=== PATIENT | female | born 1980 | race Caucasian/White ===

== ENCOUNTER → 2022-11-06 15:27 | Outpatient (BNVA) | payer BC, SELFPAY | PROVIDERS: PCP Internal Medicine; Visit Provider Psychiatry & Neurology Neurology ==

== ENCOUNTER 2024-03-16 09:06 | Outpatient (AMB) | payer BC, SELFPAY ==
--- NOTE | 2024-03-16 09:12 | A.OFFVIS_ITS ---
Vital Signs 03/16/24 09:13 Height 5 ft 1 in Weight 199 lb BMI 37.6 BP 106/74 Blood Pressure Location Rt brachial Position Sitting Intake Visit Reasons: Follow up Epilepsy Intake Note: Patient presents for follow up epilepsy. 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 She has been doing well on her medication, seizure free since 2007. She requests therapeutic Level for medication once a year, (Keppra) last one was in November 2022. She is well aware of her triggers that lower her threshold for seizures. She usually takes her medication on time and, doesn't drink alcohol, practices good sleep hygiene. She Limits stressors. She is a bit more stressed with the election, and sick family member. Taking her Buspirone and Citalopram as directed by her PCP. She is s/p Bariatric surgery 3 years ago and, concerned about her weight, as she is stress eating fast food. 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 Emphasized to her the use of vitamin D as we are approaching winter, and her mood is affected by daylight savings, not getting enough Sun. [facility]LY [facility] Medical History Juvenile myoclonic epilepsy Depression Anxiety Surgical History H/O tooth extraction H/O dilation and curettage History of laparoscopic cholecystectomy H/O gastric sleeve Family History Mother Arthritis Asthma Fibromyalgia Chronic GERD Hypertension Migraines Father Alcohol abuse Maternal Grandfather Cancer Hypertension Maternal Grandmother CAD (coronary artery disease) Hypertension Diabetes Paternal Grandfather Hypertension Paternal Grandmother Hypertension Social History Alcohol intake: former Patient Tobacco Use Status: Former Tobacco user Years Smoked: quit today 11/06/2022 Review of Systems Const All systems reviewed & are unremarkable except as noted in HPI and below Psych Reports as per HPI Physical Exam Vital Signs: Last Vital Signs BP 106/74 03/16/24 09:13 BMI result Body Mass Index 37.6 Const General: cooperative, comfortable and no acute distress Nutritional Appearance: obese Orientation/consciousness: patient oriented x3 HEENT Face and sinus: Yes face symmetric Mouth: tongue normal Eyes Pupils: Equal, round and reactive pupils present, Pupils normal by confrontation and Pupil accommodation reflex normal Neck Neck: Yes full ROM Resp Effort & Inspection: normal respiratory effort and able to speak in complete sentences Neuro General: patient oriented x3, tone normal, moves all extremities, Normal light touch and pain sensation and deep tendon reflexes 2+ bilaterally Cranial nerves: Yes CN's II-XII intact bilaterally, Yes Facial sensation intact/muscles of mastication intact, Yes Equal, round and reactive pupils present, Yes Normal facial strength present, Yes Midline tongue present, Yes Ability to bilaterally rotate head present and Yes Ability to bilaterally elevate shoulders present Gait exam (Neuro): Normal gait present Motor exam (neuro): 5/5 motor strength present throughout and Normal motor muscle tone present throughout Deep tendon reflexes (DTR's): Right triceps reflex intensity grade: 2+, Left triceps reflex intensity grade: 2+, Rt Biceps (C5, C6): 2+, Left biceps reflex intensity grade: 2+, Right brachioradialis reflex intensity grade: 2+, Left brachioradialis reflex intensity grade: 2+, Right patellar reflex intensity grade: 2+, Left patellar reflex intensity grade: 2+, Right ankle reflex intensity grade: 2+ and Left ankle reflex intensity grade: 2+ Coordination: [id number] test normal Assessment & Plan Assessment & Plan (1) Juvenile myoclonic epilepsy: Code(s): G40.B09 - Juvenile myoclonic epilepsy, not intractable, without status epilepticus Category: Medical Qualifiers: Intractability: intractable Status epilepticus: without status epilepticus Qualified Code(s): G40.B19 - Juvenile myoclonic epilepsy, intractable, without status epilepticus Plan: Continue to take Levetiracetam as directed 1000mg PO BID - Refills are sent today. Continue eliminating stress. Continue with good sleep hygiene. Will follow up with Labs CBC, CMP, Electrolytes. (2) Anxiety: Code(s): F41.9 - Anxiety disorder, unspecified Category: Medical Plan: Continue taking Buspirone as directed by therapist. 15mg PO TID, as you are doing. Continue taking Citalopram 40mg PO Daily. Continue taking vitamin d as we approach the winter months, sunshine tends to be limited. Continue going on walks daily, and low intensity exercises. Orders: Orders Comprehensive Met. 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
[2024-03-16 09:13] VITALS: BP 106/74; BMI 37.6
== END 2024-03-16 09:57 | disposition home or self-care (01) ==
PROVIDERS: PCP Internal Medicine; Visit Provider Physician Assistant Medical
DX: G40.B19 Juvenile myoclonic epilepsy, intractable, without status epilepticus (principal); F41.9 Anxiety disorder, unspecified
CPT/HCPCS: 99214

== ENCOUNTER 2024-03-16 09:06 | Outpatient (REF) | payer BC, SELFPAY ==
[2024-03-16 13:36] LABS: Hematocrit 41.3 % (37.0-47.0); Hemoglobin 13.9 g/dl (12.0-16.0); Mean Corpuscular HGB Conc 33.7 g/dl (31.0-35.0); Mean Corpuscular Hemoglobin 31.4 pg (27.0-33.0); Mean Corpuscular Volume 93.4 fL (80.0-98.0); Mean Platelet Volume 9.9 fL (9.4-12.3); Platelet Count 251 X10*3/uL (160-400); Red Blood Count 4.42 X10*6/uL (4.20-5.50); Red Cell Distribution Width 11.8 % (11.0-16.0); White Blood Count 7.1 X10*3/uL (4.8-10.8)
[2024-03-16 14:22] LABS: Alanine Aminotransferase 34 U/L (0-31); Albumin Level 3.8 g/dL (3.5-5.0); Alkaline Phosphatase 66 U/L (39-117); Anion Gap 11 (12-20); Aspartate Amino Transferase 31 U/L (5-31); Bilirubin Total 0.4 mg/dL (0.0-1.0); Blood Urea Nitrogen 13 mg/dL (9-16); Calcium 9.4 mg/dL (8.4-10.2); Carbon Dioxide 30 mmol/L (22-29); Chloride 102 mmol/L (96-108); Estimated Glomerular Filt Rate > 60; Glucose Random 101 mg/dL (60-115); Potassium 3.8 mmol/L (3.3-5.1); Sodium 139 mmol/L (135-145); Total Protein 6.9 g/dL (6.5-8.0)
[2024-03-20 01:58] LABS: Levetiracetam Keppra 40.6 mcg/mL (6.0-46.0)
== END 2024-03-16 09:07 | disposition home or self-care (01) ==
LOC: HO.HMGCLDS 09:06
PROVIDERS: PCP Internal Medicine; Visit Provider Physician Assistant Medical
DX: G40.B09 Juvenile myoclonic epilepsy, not intractable, without status epilepticus (principal)
CPT/HCPCS: 36415; 80053; 80177; 85027

== ENCOUNTER 2024-08-16 09:09 | Outpatient (AMB) | payer BC, SELFPAY ==
[2024-08-16 09:23] VITALS: BP 106/78; PULSE 80; O2SAT 97; BMI 37.2
--- NOTE | 2024-08-16 09:23 | A.OFFVIS_ITS ---
Vital Signs 08/16/24 09:23 Height 5 ft 1 in Weight 197 lb BMI 37.2 BP 106/78 Blood Pressure Location Rt brachial Position Sitting Pulse 80 Pulse Source Pulse Oximeter Pulse Oximetry (%) 97 Oxygen Delivery Method Room Air Intake Visit Reasons: Follow Up 6mo Intake Note: Patient presents 6 month follow up- Juvenile myoclonic epilepsy. Labs done on 03/16/24. Would like to check levels on medication. 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 She has been doing well on her medication, seizure free since 2007. She requests therapeutic Level for medication once a year, (Keppra) last one was in Mar 2024 (40.6) She is well aware of her triggers, can identify her triggers and avoids activities which lower her threshold for seizures. She usually takes her medication on time and, doesn't drink alcohol, practices good sleep hygiene, sleeps about 7 hours a night, with zero bathroom breaks. She has anxiety at baseline takes care of her mother who has asthma and chronic knee pain. She takes her Buspirone TID and Citalopram as directed by her PCP which is keeps her mood stable. She is s/p Bariatric surgery 3 years ago and, continues to take a Bariatric multivitamin daily. She is concerned about her weight, and trying to eat a healthier diet. 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 She limits her exercise and workouts in the gym due to L. foot plantar fasciitis, is getting cortisone shots as needed. She plans to get in the garden and get more sun now as the weather is improving. FOR[facility]LY [facility], [facility] Medical History Juvenile myoclonic epilepsy Depression Anxiety Surgical History H/O tooth extraction H/O dilation and curettage History of laparoscopic cholecystectomy H/O gastric sleeve Family History Mother Arthritis Asthma Fibromyalgia Chronic GERD Hypertension Migraines Father Alcohol abuse Maternal Grandfather Cancer Hypertension Maternal Grandmother CAD (coronary artery disease) Hypertension Diabetes Paternal Grandfather Hypertension Paternal Grandmother Hypertension Social History Alcohol intake: former Patient Tobacco Use Status: Former Tobacco user Years Smoked: quit today 11/06/2022 Physical Exam Vital Signs: Last Vital Signs Pulse 80 08/16/24 09:23 BP 106/78 08/16/24 09:23 Pulse Ox 97 08/16/24 09:23 Oxygen Delivery Method Room Air 08/16/24 09:23 BMI result Body Mass Index 37.2 Const General: cooperative, comfortable and no acute distress Nutritional Appearance: obese Orientation/consciousness: patient oriented x3 HEENT Face and sinus: Yes face symmetric Mouth: tongue normal Eyes Pupils: Equal, round and reactive pupils present, Pupils normal by confrontation and Pupil accommodation reflex normal Neck Neck: Yes full ROM Resp Effort & Inspection: normal respiratory effort and able to speak in complete sentences Neuro General: patient oriented x3, tone normal, moves all extremities, Normal light touch and pain sensation and deep tendon reflexes 2+ bilaterally Cranial nerves: Yes CN's II-XII intact bilaterally, Yes Facial sensation intact/muscles of mastication intact, Yes Equal, round and reactive pupils present, Yes Normal facial strength present, Yes Midline tongue present, Yes Ability to bilaterally rotate head present and Yes Ability to bilaterally elevate shoulders present Gait exam (Neuro): Normal gait present Motor exam (neuro): 5/5 motor strength present throughout and Normal motor muscle tone present throughout Deep tendon reflexes (DTR's): Right triceps reflex intensity grade: 2+, Left triceps reflex intensity grade: 2+, Rt Biceps (C5, C6): 2+, Left biceps reflex intensity grade: 2+, Right brachioradialis reflex intensity grade: 2+, Left brachioradialis reflex intensity grade: 2+, Right patellar reflex intensity grade: 2+, Left patellar reflex intensity grade: 2+, Right ankle reflex intensity grade: 2+ and Left ankle reflex intensity grade: 2+ Coordination: [id number] test normal Results Reviewed Results Reviewed: Labs Keprra levels are normal. Assessment & Plan Assessment & Plan (1) Juvenile myoclonic epilepsy: Code(s): G40.B09 - Juvenile myoclonic epilepsy, not intractable, without status epilepticus Category: Medical Qualifiers: Intractability: intractable Status epilepticus: without status epilepticus Qualified Code(s): G40.B19 - Juvenile myoclonic epilepsy, intractable, without status epilepticus (2) Anxiety: Code(s): F41.9 - Anxiety disorder, unspecified Category: Medical (3) Depression: Code(s): F32.A - Depression, unspecified Category: Medical Qualifiers: Depression Type: unspecified Qualified Code(s): F32.A - Depression, unspecified Plan Seizure Protocol: Continue to take Levetiracetam as directed 1000mg PO BID Continue with good sleep hygiene and improving diet. Labs are normal, may continue Bariatric Multivitamin daily. Anxiety and Depression: Continue taking Buspirone as directed by therapist. 15mg PO TID, as you are doing. Continue taking Citalopram 40mg PO Daily. Continue going on walks daily, and low intensity exercises. Patient Instructions: Sleep Hygiene provided: set a scheduled bedtime and wake time to help regulate the circadian rhythm and balance the release of pituitary hormones. Sleep in a dark room, temperatures below 68 degrees, and no devices n bed. Limit caffeinated products 6 hours prior to bed, and limit fluids 2-4 hours prior to bed. Gentle night yoga, diffusing essential oils, and playing soft music can be relaxing. 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
== END 2024-08-16 10:18 | disposition home or self-care (01) ==
LOC: HO.HSMS 09:10
PROVIDERS: PCP Internal Medicine; Visit Provider Physician Assistant Medical
DX: G40.B19 Juvenile myoclonic epilepsy, intractable, without status epilepticus (principal); F41.9 Anxiety disorder, unspecified; F32.A Depression, unspecified
CPT/HCPCS: 99214

== ENCOUNTER → 2024-08-16 09:09 | Outpatient (BNVA) | payer BC, SELFPAY | PROVIDERS: PCP Internal Medicine; Visit Provider Physician Assistant Medical ==

== ENCOUNTER 2025-02-15 09:44 | Outpatient (AMB) | payer BC, SELFPAY ==
--- NOTE | 2025-02-15 09:58 | A.OFFVIS_ITS ---
Vital Signs 02/15/25 09:59 Height 5 ft 1 in Weight 202 lb 6 oz BMI 38.2 BP 118/86 Blood Pressure Location Lt brachial Position Sitting Pulse 83 Pulse Source Pulse Oximeter Pulse Oximetry (%) 96 Oxygen Delivery Method Room Air Intake Visit Reasons: 6 mo follow up Intake Note: Patient presents follow up epilepsy. Patient would like to get levels checked for medication. 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 She has been seizure free since 2007 on Keppra 1000mg po BID. She requests therapeutic Level for medication once a year, (Keppra) last one was in Mar 2024 (40.6). She is well aware of her triggers, can identify her triggers and avoids activities which lower her threshold for seizures. She usually takes her medication on time and, doesn't drink alcohol, practices good sleep hygiene, sleeps about 7 hours a night, with zero bathroom breaks. She denies snoring, gasping for air and morning headaches She denies RLS symptoms.She had severe evangelina prior to her surgery. She has anxiety at baseline and takes care of her mother who has asthma and chronic knee pain. She takes her Buspirone TID and Citalopram as directed by her PCP which is keeps her mood stable. She is s/p Bariatric surgery 3 years ago and, continues to take a Bariatric multivitamin daily. She is concerned about her weight, and trying to eat a healthier diet. 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 She limits her exercise and workouts in the gym due to L. foot plantar fasciitis, is getting cortisone shots as needed. [facility]LY [facility] Medical History Juvenile myoclonic epilepsy Depression Anxiety Surgical History H/O tooth extraction H/O dilation and curettage History of laparoscopic cholecystectomy H/O gastric sleeve Family History Mother Arthritis Asthma Fibromyalgia Chronic GERD Hypertension Migraines Father Alcohol abuse Maternal Grandfather Cancer Hypertension Maternal Grandmother CAD (coronary artery disease) Hypertension Diabetes Paternal Grandfather Hypertension Paternal Grandmother Hypertension Social History Alcohol intake: former Patient Tobacco Use Status: Former Tobacco user Years Smoked: quit today 11/06/2022 Physical Exam Vital Signs: Last Vital Signs Pulse 83 02/15/25 09:59 BP 118/86 02/15/25 09:59 Pulse Ox 96 02/15/25 09:59 Oxygen Delivery Method Room Air 02/15/25 09:59 BMI result Body Mass Index 38.2 Const General: cooperative, comfortable and no acute distress Nutritional Appearance: obese Orientation/consciousness: patient oriented x3 HEENT Face and sinus: Yes face symmetric Mouth: tongue normal Eyes Pupils: Equal, round and reactive pupils present, Pupils normal by confrontation and Pupil accommodation reflex normal Neck Neck: Yes full ROM Resp Effort & Inspection: normal respiratory effort and able to speak in complete sentences Neuro General: patient oriented x3, tone normal, moves all extremities, Normal light t ouch and pain sensation and deep tendon reflexes 2+ bilaterally Cranial nerves: Yes CN's II-XII intact bilaterally, Yes Facial sensation intact/muscles of mastication intact, Yes Equal, round and reactive pupils present, Yes Normal facial strength present, Yes Midline tongue present, Yes Ability to bilaterally rotate head present and Yes Ability to bilaterally elevate shoulders present Gait exam (Neuro): Normal gait present Motor exam (neuro): 5/5 motor strength present throughout and Normal motor muscle tone present throughout Coordination: [id number] test normal Psych Appearance: grossly normal Speech and movement: Normal speech and movement present Thought process: Normal thought process present Thought content: Normal thought content present Results Reviewed Results Reviewed: levels of keppra Assessment & Plan Assessment & Plan (1) Excessive daytime sleepiness: Code(s): G47.19 - Other hypersomnia Category: Medical (2) Epilepsy: Code(s): G40.909 - Epilepsy, unspecified, not intractable, without status epilepticus Category: Medical Qualifiers: Epilepsy type: juvenile myoclonic Intractability: intractable Status epilepticus: without status epilepticus Qualified Code(s): G40.B19 - Juvenile myoclonic epilepsy, intractable, without status epilepticus (3) Fatigue: Code(s): R53.83 - Other fatigue Category: Medical Qualifiers: Fatigue type: chronic, unspecified Qualified Code(s): R53.82 - Chronic fatigue, unspecified (4) Juvenile myoclonic epilepsy: Code(s): G40.B09 - Juvenile myoclonic epilepsy, not intractable, without status epilepticus Category: Medical Qualifiers: Intractability: intractable Status epilepticus: without status epilepticus Qualified Code(s): G40.B19 - Juvenile myoclonic epilepsy, intractable, without status epilepticus (5) Anxiety: Code(s): F41.9 - Anxiety disorder, unspecified Category: Medical (6) Depression: Code(s): F32.A - Depression, unspecified Category: Medical Qualifiers: Depression Type: unspecified Qualified Code(s): F32.A - Depression, unspecified Plan HST to r/o evangelina Excessive Daytime Fatigue Labs to r/o deficiencies Seizure Protocol: Continue to take Levetiracetam as directed 1000mg PO BID. will check Keppra toxicology labs today. Continue with good sleep hygiene and improving diet. Anxiety and Depression: Continue taking Buspirone as directed by therapist. 15mg PO TID, as you are doing. Continue taking Citalopram 40mg PO Daily. Continue going on walks daily, and low intensity exercises as tolerable. F/u in 3 months Orders: Orders RT home sleep study Today G47.19 - Other hypersomnia Levetiracetam Keppra Today G40.909 - Epilepsy, unspecified, not intractable, wi thout status epilepticus Vitamin B12 and Folate Today G40.909 - Epilepsy, unspecified, not intractable, without status epilepticus, R53.83 - Other fatigue TSH reflex Free T4 Today G40.909 - Epilepsy, unspecified, not intractable, without status epilepticus, R53.83 - Other fatigue Methylmalonic Acid Today G40.909 - Epilepsy, unspecified, not intractable, without status epilepticus, G47.9 - Sleep disorder, unspecified, R53.83 - Other fatigue Homocysteine Today G40.909 - Epilepsy, unspecified, not intractable, without status epilepticus, G47.9 - Sleep disorder, unspecified, R53.83 - Other fatigue Comprehensive Met. Panel Today G40.909 - Epilepsy, unspecified, not intractable, without status epilepticus, R53.83 - Other fatigue Vitamin D 25-OH Total Today G40.909 - Epilepsy, unspecified, not intractable, without status epilepticus, R53.83 - Other fatigue Ferritin Today G40.909 - Epilepsy, unspecified, not intractable, without status epilepticus, R53.83 - Other fatigue Complete Blood Count no Diff Today G40.909 - Epilepsy, unspecified, not intractable, without status epilepticus, R53.83 - Other fatigue Patient Instructions: Sleep Hygiene provided: set a scheduled bedtime and wake time to help regulate the circadian rhythm and balance the release of pituitary hormones. Sleep in a dark room, temperatures below 68 degrees, and no devices n bed. Limit caffeinated products 6 hours prior to bed, and limit fluids 2-4 hours prior to bed. Gentle night yoga, diffusing essential oils, and playing soft music can be relaxing. 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
[2025-02-15 09:59] VITALS: BP 118/86; PULSE 83; O2SAT 96; BMI 38.2
== END 2025-02-15 10:29 | disposition home or self-care (01) ==
LOC: HO.HSMS 09:45
PROVIDERS: PCP Internal Medicine; Visit Provider Physician Assistant Medical
DX: G47.19 Other hypersomnia (principal); G40.B19 Juvenile myoclonic epilepsy, intractable, without status epilepticus; R53.82 Chronic fatigue, unspecified; F41.9 Anxiety disorder, unspecified; F32.A Depression, unspecified
CPT/HCPCS: 99214

== ENCOUNTER 2025-02-15 09:44 | Outpatient (REF) | payer BC, SELFPAY ==
[2025-02-15 13:39] LABS: Hematocrit 43.9 % (37.0-47.0); Hemoglobin 14.4 g/dl (12.0-16.0); Mean Corpuscular HGB Conc 32.8 g/dl (31.0-35.0); Mean Corpuscular Hemoglobin 31.0 pg (27.0-33.0); Mean Corpuscular Volume 94.6 fL (80.0-98.0); NRBC Abs Auto 0.000 X10*3/uL (0.0-0.012); NRBC Pct Auto 0.0 /100WBC (0.0-0.2); Platelet Count 259 X10*3/uL (160-400); Red Blood Count 4.64 X10*6/uL (4.20-5.50); White Blood Count 6.0 X10*3/uL (4.8-10.8)
[2025-02-15 13:59] LABS: Alanine Aminotransferase 18 U/L (0-31); Albumin Level 4.2 g/dL (3.5-5.0); Alkaline Phosphatase 66 U/L (39-117); Anion Gap 8 (12-20); Aspartate Amino Transferase 21 U/L (5-31); Blood Urea Nitrogen 12 mg/dL (9-16); Calcium 9.5 mg/dL (8.4-10.2); Carbon Dioxide 29 mmol/L (22-29); Chloride 107 mmol/L (96-108); Estimated Glomerular Filt Rate > 60; Potassium 5.4 mmol/L (3.3-5.1); Sodium 139 mmol/L (135-145); Total Protein 7.2 g/dL (6.5-8.0)
[2025-02-15 14:25] LABS: Ferritin 65 ng/mL (10-250)
[2025-02-15 14:27] LABS: Folate > 20.0 ng/mL (> or = 4.0); Vitamin B12 747 pg/mL (200-900)
[2025-02-17 23:04] LABS: Levetiracetam Keppra 42.0 mcg/mL (6.0-46.0)
== END 2025-02-15 09:45 | disposition home or self-care (01) ==
LOC: HO.HKASLDS 09:44
PROVIDERS: PCP Internal Medicine; Visit Provider Physician Assistant Medical
DX: G40.B19 Juvenile myoclonic epilepsy, intractable, without status epilepticus (principal); G47.19 Other hypersomnia; F41.9 Anxiety disorder, unspecified; F32.A Depression, unspecified; R53.83 Other fatigue; Z79.899 Other long term (current) drug therapy
CPT/HCPCS: 36415; 80053; 80177; 82306; 82607; 82728; 82746; 83090; 83921; 84443; 85027